=== PATIENT | female | born 1950 | race Caucasian/White ===

== ENCOUNTER 2024-06-15 08:34 | Inpatient (IN) ==
--- NOTE | 2024-05-13 12:57 | PAT Medication Instructions ---
Medication Instructions Date of Service May 13, 2024 Home Medications apixaban 5 mg tablet (Eliquis) 5 mg PO BID atenolol 50 mg tablet 50 mg PO QDL baclofen 10 mg tablet 10 mg PO DAILY PRN Pain levothyroxine 50 mcg tablet (Synthroid) 100 mcg PO QAM Continue as directed atenolol 50 mg tablet 50 mg PO QDL baclofen 10 mg tablet 10 mg PO DAILY PRN Pain (if needed) levothyroxine 50 mcg tablet (Synthroid) 100 mcg PO QAM ASK your prescriber and surgeon apixaban 5 mg tablet (Eliquis) 5 mg PO BID Other Notes If you have any questions please call us at [phone] or [phone] or [phone] or [phone]
--- NOTE | 2024-05-20 14:11 | Anesthesiology Consultation ---
Date of Service May 20, 2024 Assessment & Plan (1) Encounter for pre-operative examination: - patient reports upcoming PCP pre-operative evaluation 06/08/24, Dr. Audra Chavez. - will ask cardiology if patient can hold apixaban (Eliquis) 3 days before surgery in order to receive neuraxial anesthesia. - cardiology clearance 04/07/24: "...based on her most recent evaluation, she would be at low risk of 30 day postop OR or cardiac arrest...dependent on no new concerning symptoms since the time of her last assessment within the last year...may hold apixaban (Eliquis) 2 days prior to the procedure and resume when felt to be safe following the procedure..." - Outpatient joint assessment: Patient is currently scheduled for inpatient pathway. If re-evaluated and patient/surgeon requests outpatient pathway, patient is acceptable candidate for outpatient joint program from anesthesia standpoint pending surgeon's office assessment of pt motivation/support/completion of same day joint program preop requirements. - Per air duct mechanic on 05/12/24: No known infectious disease contacts, current infectious disease symptoms in past 10 days or COVID positive test result in the past 30 days. Chart Review Chart Review: Pending: Refer to Additional Notes / Consult section and Patient seen in Pre Admission Testing Teaching & Discussion Pre-Anesthesia Teaching/Discussion Notes: Instructed NPO after midnight before surgery, except medications with 15 cc of water. Medication instructions provided according to the PAT guidelines. History Surgery Operation Date: 06/15/24 11:10 Proposed Procedures p Right Total Hip Arthroplasty, Possible Dual Mobility - Néstor Morillo MD Height/Weight Height: 5 ft 3.5 in Weight: 61.1 kg Allergies Allergy/AdvReac Type Severity Reaction Status Date / Time tramadol Allergy Severe Rash Verified 05/20/24 14:19 acetaminophen [From Percocet] Allergy Unknown Rash Verified 05/12/24 08:57 latex Allergy Unknown Redness of Verified 05/12/24 09:05 Skin oxycodone [From Percocet] Allergy Unknown Rash Verified 05/12/24 08:57 Medications Home Medications Medication Instructions Recorded Confirmed Last Taken apixaban 5 mg tablet (Eliquis) 5 mg PO BID 05/12/24 05/12/24 Unknown atenolol 50 mg tablet 50 mg PO QDL 05/12/24 05/12/24 Unknown baclofen 10 mg tablet 10 mg PO DAILY PRN Pain 05/12/24 05/12/24 Unknown levothyroxine 50 mcg tablet 100 mcg PO QAM 05/12/24 05/12/24 Unknown (Synthroid) Additional Notes: Patient was instructed and it was written on provided medication instructions that we will request stopping apixaban (Eliquis) 3 days before surgery. She verbalized understanding and denied questions or concerns. Past Medical History Medical History History of blood transfusion with ectopic Hx of ectopic Occipital neuritis hx- no issues in years, no longer follows w/ neuro History of COVID-19 (2020) no hosp; resolved Hypothyroidism Atrial fibrillation (2018) hx of one episode- controlled w/ meds, reason for Eliquis - follows w/ [facility] cardio Dr Jarocho Lincoln Hx of ovarian cancer (2018) s/p hysterectomy - no chemo or radiation Patient denies h/o stroke, seizures, heart attack, heart failure, DM, HTN, or blood clots/DVTs. Exercise / Class Metabolic Activity II 4-5 Yardwork/Stairs/Walk up hill (denies chest discomfort or shortness of breath with one flight of stairs) Past Surgical History Surgical History Hx of bilateral cataract extraction History of bladder surgery bladder reconstruction Hx of hysterectomy Hx of abdominoplasty Hx of section Past Anesthesia History No Family Hx of Anesthesia Complications and Other (slow to wake with hysterectomy) History of PONV No Hx of PONV and No Hx of Motion Sickness Social History Smoking Status: Never smoker Do You Dip or Chew Tobacco: No Hx Alcohol Use: Yes alcohol intake frequency: holidays/special occasions only Hx Substance Use: No substance use type: does not use Review of Systems Snoring, denies witnessed apneas. Patient denies chest pain, shortness of breath, dyspnea on exertion, reflux, fever, chills, cough, wheezing, or palpitations. Physical Exam Vital Signs Vitals BP 169/83 (Pt notes often has elevated BP readings in clinic with white coat syndrome, notes she is anxious regarding surgery) P 57 TEMP 98.0 SP02 97% on RA RESP 18 Physical Patient resting comfortably in chair in no acute distress, alert and oriented, responding appropriately throughout visit Full cervical extension range of motion without pain TMD 3.5 finger breadths Mallampati Score 2 Dentition: one crown, denies chipped or loose teeth, caps, implants or bridges Lungs: normal respiratory effort. Good air movement, clear throughout to auscultation, no adventitious breath sounds Cardiac: regular rate and rhythm, no murmurs noted Carotid arteries: negative bruit bilat Lab Results Anesthesia Preop Results Results Anesthesia Widget: WBC 5.51 K/ul (4.8-10.8) 05/20/24 Hgb 12.9 g/dl (12.0-16.0) 05/20/24 Hct 38.9 % (37.0-47.0) 05/20/24 Plt 198 K/uL (130-400) 05/20/24 Na 139 mmol/L (136-145) 05/20/24 K 4.0 mmol/L (3.5-5.1) 05/20/24 Cl 108 mmol/L (98-107) H 05/20/24 CO2 26 mmol/L (21-32) 05/20/24 BUN 16 mg/dl (6-23) 05/20/24 Creat 0.49 mg/dl (0.6-1.2) L 05/20/24 Glucose Level 90 mg/dl (70-99(Fasting)) 05/20/24 PT 11.8 Seconds (9.0-12.0) 05/20/24 PTT 31 Seconds (21-31) 05/20/24 INR 1.1 (0.9-1.1) 05/20/24 Urine Color Yellow 05/20/24 Urine Appearance Clear (Clear) 05/20/24 Urine pH 5.5 (4.5-7.5) 05/20/24 Urine Specific [place] 1.016 (1.000-1.030) 05/20/24 Urine Protein Negative (Negative) 05/20/24 Urine Glucose (UA) Negative (Negative) 05/20/24 Urine Ketones Negative (Negative) 05/20/24 Urine Blood Negative (Negative) 05/20/24 Urine Nitrite Negative (Negative) 05/20/24 Urine Bilirubin Negative (Negative) 05/20/24 Urine Urobilinogen Negative (Negative) 05/20/24 Urine Leukocyte Esterase Negative (Negative) 05/20/24 Blood Type A Negative 05/20/24 Antibody Screen NEGATIVE 05/20/24 Testing Electrocardiogram Date: 05/20/24 Sinus bradycardia with 1st degree AV block, rate 53 bpm Nonspecific T wave abnormality anterior leads Chest X-Ray Date: 05/20/24 No acute process.
--- NOTE | 2024-05-20 16:41 | History & Physical Report ---
Date of Service May 20, 2024 Assessment & Plan (1) Osteoarthritis of right hip: Plan: PRE-OP Diagnosis: Right hip osteoarthritis Planned Procedure: Right total hip arthroplasty possible dual mobility cup Plan: Patient is scheduled to undergo this procedure at the [facility] with a 23-hour observation admission with Dr. Morillo on Thursday, August 15, 2024. Risks and complications of the procedure such as: Infection, bleeding, pain, scarring, nerve blood vessel damage, weakness, wound problems, stiffness, incomplete relief of symptoms, hardware failure, hardware loosening, wear, fracture, tendon or ligament injury, dislocation, leg length inequality, blood clots, Embolism, heart attack, stroke and were explained to the patient at her visit today. Informed consent to perform the procedure was obtained. Patient has an appointment to meet with anesthesia later today and while there will obtain CBC with differential, complete metabolic panel, PT/INR, PTT, blood type and screen, urinalysis, urine culture and sensitivity, EKG, and a chest x-ray. Patient will also need preoperative medical clearance from their primary care provider. We have obtained clearance from her infantry weapons officer who recommends that she stop her Eliquis 2 days prior to the surgery.. Patient states that she plans on doing in-home physical therapy for the first 1 to 2 weeks postoperatively that we will transition into outpatient physical therapy in our PT clinic. Patient will need a walker, raised toilet seat, shower chair and a hip kit. During today's visit we reviewed the total hip packet as well as precautions. We discussed discharge planning from the hospital. I provided paperwork to obtain a handicap placard for their vehicle. We discussed lectures offered by [facility] in regards to joint replacement surgery via Zoom. I advised the patient that upon discharge from hospital we will prescribe a narcotic pain medication and have her resume her Eliquis. Patient will be scheduled for 2-week postoperative follow-up visit with Giorgio on June 30, 2024. This chart was completed utilizing [employer] voice recognition software. Grammatical errors, random word insertions, pronoun errors, and in complete sentences are an occasional consequence of the system. Any questions or concerns about the content, text, or information contained within the body of this dictation should be addressed directly to the physician for clarification. History of Present Illness Chief Complaint: Chief Complaint: Right hip pain Primary Care Provider: NO PCP History of Present Illness (including history relevant to procedure): This 73-year-old female presents to the clinic today for preoperative history and physical. Patient complains of a 60-year history of right hip pain over the posterior lateral aspect of her hip and to her groin. She states that over the past several months her mobility has decreased significantly. Patient has had chiropractic manipulation which helps manage her pain. She regularly uses Advil which is only mildly effective. Patient states that she feels much better when she is active. She stiffens up when she is inactive. Recently she has found it difficult to tie her shoes, cut her toenails or shave her legs. Patient is ready to proceed with surgical intervention at this point. Review Of Systems: A 12 point review of systems is performed and is unremarkable except for those things stated in the HPI past medical history. Past Medical History: Problems: Osteoarthritis of right hip Hypertension Hypothyroidism History of ovarian cancer Procedure History Procedure Procedure Date Comments Tummy tuck Tubal ligation Hysterectomy Bladder repair Allergies and Sensitivities: traMADol(rash) Percocet(rash) Current Home Meds: (Last Updated 05/20 12:30) apixaban (Eliquis 5 mg oral tablet) 5 mg PO bid atenolol (atenolol 50 mg oral tablet) 50 mg PO Every other day cycloSPORINE ophthalmic (Restasis 0.05% ophthalmic emulsion) 1 drop both eyes q12h levothyroxine (levothyroxine 100 mcg (0.1 mg) oral tablet) 100 mcg PO Daily thyroid desiccated ([place] Thyroid 120 mg oral tablet) 120 mg PO Daily Initial Wt: 05/20 60.8 kg 134 lb Allergies Allergy/AdvReac Type Severity Reaction Status Date / Time tramadol Allergy Severe Rash Verified 05/20/24 14:19 acetaminophen [From Percocet] Allergy Unknown Rash Verified 05/12/24 08:57 latex Allergy Unknown Redness of Verified 05/12/24 09:05 Skin oxycodone [From Percocet] Allergy Unknown Rash Verified 05/12/24 08:57 Home Medications Medication Instructions Recorded Confirmed Type apixaban 5 mg tablet (Eliquis) 5 mg PO BID 05/12/24 05/12/24 History atenolol 50 mg tablet 50 mg PO QDL 05/12/24 05/12/24 History baclofen 10 mg tablet 10 mg PO DAILY PRN Pain 05/12/24 05/12/24 History levothyroxine 50 mcg tablet 100 mcg PO QAM 05/12/24 05/12/24 History (Synthroid) Past Med/Surg History Problem List Osteoarthritis of right hip Encounter for pre-operative examination Medical History History of blood transfusion with ectopic Hx of ectopic Occipital neuritis hx- no issues in years, no longer follows w/ neuro History of COVID-19 (2020) no hosp; resolved Hypothyroidism Atrial fibrillation (2018) hx of one episode- controlled w/ meds, reason for Eliquis - follows / [facility] cardio Dr Jarocho Lincoln Hx of ovarian cancer (2018) s/p hysterectomy - no chemo or radiation Surgical History Hx of bilateral cataract extraction History of bladder surgery bladder reconstruction Hx of hysterectomy Hx of abdominoplasty Hx of section Social History Smoking Status: Never smoker Second Hand Exposure: Yes (as a child); Do You Dip or Chew Tobacco: No; Hx Alcohol Use: Yes Hx Substance Use: No Preferred Language: Kiswahili Communication Ability: Effective [employer] Drm Consultant Required: No Beliefs That Will Affect Care: None Current Living Situation: Spouse Feels Safe at Home: Yes Assistive Devices: None Review of Systems All systems reviewed & are unremarkable except as noted in Subjective Physical Exam Physical Exam: Physical Exam: (relevant to the procedure, including heart and lung evaluation) General: Alert and oriented x 3 with proper grooming and hygiene Eyes: Pupils are equal reactive to light with accommodation. Extraocular movements are intact Throat: posterior oropharynx is clear with absence of edema, erythema or exudate. Dentition is appropriate Cardiac: Regular rate and rhythm with no murmurs or gallops appreciated Lungs: Clear to auscultation throughout with no wheezing, rales or rhonchi Abdomen: Nonobese, nondistended, nontender with NABS Extremities: Right hip; flexion is limited to 80 degrees, internal rotation to - 5 degrees and external rotation to 15 degrees. Logroll test is positive. Stinchfield test positive. Straight leg raise test positive. With referred pain to the groin. Scour and impingement tests are both positive. Patient was neurovascularly intact. Neuro: Cranial nerves II through XII are intact with no motor or sensory deficit Skin: Normal appearance with no open skin areas or dischargePhysical Exam: (relevant to the procedure, including heart and lung evaluation) Results & Data Diagnostic Findings Studies (relevant to the procedure): 3 views of both hips which showsadvanced osteoarthritis
[~2024-06-15 08:34] MED LIST: ROPIV 0.5% 246mg, Ketorolac 30mg, EPINEPHrine 0.5mg in NSS INFIL SCH; ROPIVACAINE 0.5% 5 MG/ML 30 ML VIAL ONE
--- NOTE | 2024-06-15 08:48 | History & Physical Bridge Note ---
Date of Service June 15, 2024 History & Physical Bridge Note I have examined the patient, reviewed the History & Physical and in the interval since the performance of the History & Physical I have noted the following changes of clinical significance:consent and site right hip verified. no changes noted
[2024-06-15] MEDS: LR 15ML/HR IV SCH (09:01)
[2024-06-15] MEDS: LR 60ML/HR IV SCH (09:02)
[2024-06-15] MEDS ORDERED: PROPOFOL IV EMULSION 10 MG/ML 20 ML VIAL IV ONE (10:10)
[2024-06-15] MEDS ORDERED: MIDAZOLAM HCL 1 MG/ML 2ML VIAL ONE (10:10)
[2024-06-15] MEDS ORDERED: LIDOCAINE 2% 2 ML VIAL/AMP(20MG/ML) INFIL ONE (10:10)
[2024-06-15] MEDS ORDERED: fentaNYL citrate PF 100 MCG/2 ML VIAL ONE ×2 (10:10→12:02)
[2024-06-15] MEDS ORDERED: ROCURONIUM BROMIDE 10 MG/ML 5 ML VIAL IV ONE (10:10)
[2024-06-15] MEDS ORDERED: DEXAMETHASONE SOD INJ 4 MG/ML VIAL ONE (10:10)
[2024-06-15] MEDS ORDERED: ONDANSETRON INJ 2 MG/ML 2 ML VIAL ONE (10:10)
[2024-06-15] MEDS: TRANEXAMIC ACID 1,000 MG **IV Pre-op IV SCH (11:06)
[2024-06-15] MEDS: ceFAZolin 2000MG 2,000 MG/15 ML SYR IV SCH ×2 (11:22→18:40)
[2024-06-15] MEDS ORDERED: HYDROmorphone INJ 2 MG/ML SYR/VIAL ONE (11:49)
[2024-06-15] MEDS: ORTHO JOINT ANESTHETIC ONE (12:18)
[2024-06-15] MEDS: ROPIVACAINE 0.5% HCL/PF 246 MG, Ketorolac (*for OR use only*) 30 MG, EPINEPHrine 30MG/3... INFIL SCH (12:36)
[2024-06-15] MEDS: TRANEXAMIC ACID 1,000 MG **IV Intra-op IV SCH (12:37)
[2024-06-15] MEDS ORDERED: SUGAMMADEX SODIUM 200 MG/2 ML VIAL IV ONE (12:50)
--- NOTE | 2024-06-15 13:00 | Post Operative Brief Note ---
Immediate Post Op Note Date of Surgery June 15, 2024 Pre & Post Diagnosis Operation Date: 06/15/24 10:40 Pre-Op Diagnosis: Osteoarthritis of right hip Post-Op Diagnosis: Osteoarthritis of right hip I identified the patient and participated in the time-out.: Yes Procedure Operation Date: 06/15/24 10:40 Actual Procedures p Right Total Hip Arthroplasty, Dual Mobility(Right) - Néstor Morillo MD Surgeon Néstor Morillo MD Environmental Services Tech Saba/Fabiano Estimated Blood Loss 100 Findings Consistent with Post-Op Diagnosis Severe osteoarthritis with marked acetabular retroversion right hip significant periacetabular osteophytes Fluids See anesthesia report Complications None
--- NOTE | 2024-06-15 13:05 | Operative Report ---
Post Operative Report Pre & Post Diagnosis Operation Date: 06/15/24 10:40 Pre-Op Diagnosis: Osteoarthritis of right hip Post-Op Diagnosis: Osteoarthritis of right hip I identified the patient and participated in the time-out.: Yes Procedure Operation Date: 06/15/24 10:40 Actual Procedures p Right Total Hip Arthroplasty, Dual Mobility(Right) - Néstor Morillo MD Surgeon Néstor Morillo MD Fresh Foods Technician Saba/Fabiano Estimated Blood Loss 100 Findings Consistent with Post-Op Diagnosis Advanced osteoarthritis with marked acetabular retroversion. Acetabular osteophytes femoral neck cam lesion right hip Fluids See anesthesia report Specimens Bone pathology Drains None Complications None Indications Severe pain marked x-ray change Description of Procedure After the patient was appropriate endophyte site verified consent verified antibiotics confirmed to be given the right lower extremity was prepped and draped in his routine fashion with the patient in the left lateral decubitus position. A posterior approach to the hip was then made sharp section carried through skin blunt dissection down to fascia this was incised under direct vision. Once the fascia was incised Charnley retractor carefully placed 1 can see the sciatic nerve it was not explored was just visualized. Short external rotators were released capsule was teed the hip dislocated there was marked cam lesion marked periacetabular osteophytes some is required resection immediately after the dislocation. The femoral neck was resected leaving about a centimeter above the lesser trochanter. Excellent acetabular exposure was obtained. Retroversion was identified and osteophytes resected serial reaming carried up to a 50 and a 50 cup impacted into appropriate anteversion inclination with excellent rim fit and then secured with an additional 6.5 x 25 screw with excellent purchase. Once all the osteophytes removed the whole limb later was seated and the 50/43 dual mobility liner was placed and impacted into excellent position. Should be next this was all irrigated prior to doing this with Betadine and Pulsavac. Femur was then flexed internally rotated and the proximal femur prepared with roncourtneyur canal finder lateralizing rasp and serial broaching up to a size 4 stem for fit very well. Trial reduction with a high offset and regular stem neck length was appropriate with a regular neck length. The leg lengths are equal with a +4 head. Trial reduction was stable in all planes. The hip was then dislocated all remaining trial implants were removed on the permanent stem and head neck, were then seated hip reduced it was stable all planes leg lengths were equal. The wound was then irrigated and then closed with 2-0 Vicryl for the short external rotator remnants there was no significant capsule based on the amount of osteophyte resection and then gluteus leah fascia was then closed as well as the IT band with #2 Vicryl the deep fat with #2 Vicryl superficial fat with 2-0 Vicryl and the wound with stainless steel clips appropriate dressing applied the patient transferred recovery in satisfactory descending tolerated the procedure well. Summary of implants acetabular shell sector cup 5025 x 6.5 screw dome cover whole rn intake 50/45 the mobility liner for standard stem with collar Actis dual Flex 43/22 bipolar head 22+4 head. Patient tolerated the procedure well. The femoral head was articular ease femoral head 22+4. EBL was 100 cc or less crystalloid per anesthesia bone pathology pending DVT prophylaxis to remove resume tomorrow for her chronic atrial fibrillation. I attest to the content of the Intraoperative Record and any orders documented therein. Any exceptions are noted below.
--- NOTE | 2024-06-15 13:08 | Discharge Summary ---
Date of Service June 16, 2024 if she passes PT/OT. Admission HPI Per Admitting Provider History of Present Illness (including history relevant to procedure): This 73-year-old female presents to the clinic today for preoperative history and physical. Patient complains of a 60-year history of right hip pain over the posterior lateral aspect of her hip and to her groin. She states that over the past several months her mobility has decreased significantly. Patient has had chiropractic manipulation which helps manage her pain. She regularly uses Advil which is only mildly effective. Patient states that she feels much better when she is active. She stiffens up when she is inactive. Recently she has found it difficult to tie her shoes, cut her toenails or shave her legs. Patient is ready to proceed with surgical intervention at this point. Review Of Systems: A 12 point review of systems is performed and is unremarkable except for those things stated in the HPI past medical history. Past Medical History: Problems: Osteoarthritis of right hip Hypertension Hypothyroidism History of ovarian cancer Procedure History Procedure Procedure Date Comments Tummy tuck Tubal ligation Hysterectomy Bladder repair Allergies and Sensitivities: traMADol(rash) Percocet(rash) Current Home Meds: (Last Updated 05/20 12:30) apixaban (Eliquis 5 mg oral tablet) 5 mg PO bid atenolol (atenolol 50 mg oral tablet) 50 mg PO Every other day cycloSPORINE ophthalmic (Restasis 0.05% ophthalmic emulsion) 1 drop both eyes q12h levothyroxine (levothyroxine 100 mcg (0.1 mg) oral tablet) 100 mcg PO Daily thyroid desiccated ([place] Thyroid 120 mg oral tablet) 120 mg PO Daily Initial Wt: 05/20 60.8 kg 134 lb Principal Diagnosis Severe osteoarthritis right hip Discharge Data Allergies Allergy/AdvReac Type Severity Reaction Status Date / Time oxycodone Allergy Severe Flushing Verified 06/15/24 09:06 tramadol Allergy Severe Rash Verified 06/15/24 09:06 latex Allergy Intermediate Rash Verified 06/15/24 09:07 Vaccinations None Consultations None Procedures Performed Operation Date: 06/15/24 10:40 Actual Procedures p Right Total Hip Arthroplasty, Dual Mobility(Right) - Néstor Morillo MD Ordered Studies X-rays Hospital Course (1) Status post right hip replacement: Care pathway for total hip replacement Total Time Total Time Spent Total Time Spent (In Minutes): 5 Discharge Plan Discharge Items Reason For Visit: Severe Right Hip Osteoarthritis Discharge Diagnosis: Same Condition on Discharge: Good Activity: Per Instructions section Lifting: No more than 5 pounds Bathing: Keep incision dry Sexual Activity: Wait until after follow-up appointment Exercise/Sports: Wait until after follow-up appointment Call non-emergency contact if: your temperature is above 101.5, your wound has increased redness, your wound has increased drainage and your wound pain has increased Follow-up/Referrals: PCP,NO [Physician] - Addtl Attending Provider Instructions: DIET: * Resume previous diet. MEDICATIONS: * Please take your prescriptions as instructed at your pre-op appointment and/or see medication discharge instructions listed above. * If concerns develop, call your physician's office at . SPECIAL CARE INSTRUCTIONS: * Ice/Elevate as instructed. * Keep dressing clean, dry, intact. * Your surgical extremity may be discolored due to prepping agents used on the skin. A bluish-green tint is a normal variant and should not cause alarm. Call your doctor at [phone] if: * Temperature above 101 degrees * Pain not relieved by pain medicine ordered * There is increased drainage or redness from any incision * You have any unanswered questions, problems or concerns. FOLLOW UP VISIT: * If not already scheduled, please call the office at to schedule a follow-up appointment. Stand-Alone Forms: My [facility] Medications and DC Order Prescriptions: No Action baclofen 10 mg Tablet 10 mg PO DAILY PRN (Reason: Pain) levothyroxine [Synthroid] 50 mcg Tablet 100 mcg PO QAM atenolol 50 mg Tablet 50 mg PO QDL Eliquis 5 mg Tablet 5 mg PO BID Admission Data Admit Date/Time: 06/15/24 13:33 Attending Provider: Néstor Morillo Admit Provider: Néstor Morillo Primary Care Provider: Audra James
--- NOTE | 2024-06-15 13:09 | Orthopedic Progress Note ---
Date of Service June 15, 2024 Orthopedic Progress Note Patient tolerated right total well. Denies chest pain shortness of breath fever chills nausea vomiting or headache. Family contacted. Wound dressing clean dry and intact neurovascular check waiting for patient to become fully cognizant. X-rays pending. Blood loss was 100 cc or less. Initiate anticoagulation tomorrow.
--- NOTE | 2024-06-15 13:13 | Operative Report ---
Post Operative Report Pre & Post Diagnosis Operation Date: 06/15/24 10:40 Pre-Op Diagnosis: Osteoarthritis of right hip Post-Op Diagnosis: Osteoarthritis of right hip I identified the patient and participated in the time-out.: Yes Procedure Operation Date: 06/15/24 10:40 Actual Procedures p Right Total Hip Arthroplasty, Dual Mobility(Right) - Néstor Morillo MD Surgeon Néstor Morillo MD [employer] Technical Lead Senior Developer Saba/Fabiano Estimated Blood Loss 100 Findings Consistent with Post-Op Diagnosis Specimens Bone pathology Description of Procedure The patient was brought to the operative suite underwent general anesthesia. She was placed in the left lateral decubitus position. Right lower extremity was prepped and draped in usual sterile fashion. A surgical timeout was performed. Patient underwent a right total hip arthroplasty, please see Dr. Morillo's operative report for full details. I was present and assisted with limb positioning, soft tissue retraction, hardware placement, wound closure, postoperative dressing placement. Patient was awakened and taken to the recovery room in stable condition. I attest to the content of the Intraoperative Record and any orders documented therein. Any exceptions are noted below.
[2024-06-15] MEDS ORDERED: ATROPINE SULFATE 0.1 MG/ML 10ML SYR IV PRN (13:20)
[2024-06-15] MEDS ORDERED: ONDANSETRON INJ 2 MG/ML 2 ML VIAL IV PRN ×2 (13:20→15:15)
[2024-06-15] MEDS: fentaNYL citrate PF 100 MCG/2 ML VIAL IV PRN (13:20)
[2024-06-15] MEDS ORDERED: ePHEDrine sulfate 50 MG/ML AMP IV PRN (13:20)
[2024-06-15] MEDS: HYDROmorphone INJ 1 MG/ML SYRINGE IV PRN (13:35)
[2024-06-15] MEDS: fentaNYL citrate PF 100 MCG/2 ML VIAL ONE (13:44)
--- NOTE | 2024-06-15 13:44 | Operative Report ---
Post Operative Report Pre & Post Diagnosis Operation Date: 06/15/24 10:40 Pre-Op Diagnosis: Osteoarthritis of right hip Post-Op Diagnosis: Osteoarthritis of right hip I identified the patient and participated in the time-out.: Yes Procedure Operation Date: 06/15/24 10:40 Actual Procedures p Right Total Hip Arthroplasty, Dual Mobility(Right) - Néstor Morillo MD Surgeon PAYTON Morillo MD Combo Welder Saba/Fabiano MCCARTY Estimated Blood Loss 100 Findings Consistent with Post-Op Diagnosis see operative report Specimens see operative report Drains none Complications none Disposition Accompanied Patient To Recovery: Yes Indications This 73 year old female presented to the office complaints of persisting right hip pain and loss of motion. She had tried conservative care measures without improvement. She elected to proceed with surgical intervention after being educated about potential risks and outcomes. Preoperative imaging was obtained. Description of Procedure The patient was taken to the operating room where she was given general anesthesia. She was prepped and draped in the usual sterile fashion. Please see Dr. Morillo's operative report for specifics of the procedure. I was present for the entire case from initial patient positioning through final wound closure. Assistance was provided in tissue retraction, hemostasis, trial implant placement, final implant placement, and final wound closure. The patient was taken to the recovery room in satisfactory condition. I attest to the content of the Intraoperative Record and any orders documented therein. Any exceptions are noted below.
--- NOTE | 2024-06-15 13:53 | Anesthesiology Progress Note ---
Date of Service June 15, 2024 Anesthesia Post Procedure Vital Signs Vital Signs: Temp Pulse Resp BP Pulse Ox O2 Del Method 06/15/24 09:05 36.7 C 59 L 18 169/77 H 98 Room Air Pain Intensity Right Hip: Pain Intensity: 6 Transfer of Care Handoff Completed per policy Notes Mental Status: alert / awake / arousable and participated in evaluation Patient Amnestic to Procedure: Yes Nausea / Vomiting: adequately controlled Pain: adequately controlled Airway Patency, RR, SpO2: stable & adequate BP & HR: stable & adequate Hydration State: stable & adequate Anesthetic Complications: no major complications apparent
[2024-06-15] MEDS ORDERED: fentaNYL citrate PF 100 MCG/2 ML VIAL IV PRN (14:11)
[2024-06-15] MEDS: HYDROmorphone INJ 1 MG/ML SYRINGE ONE (14:15)
[2024-06-15] MEDS: HYDROmorphone INJ 2 MG/ML SYR/VIAL IV PRN (14:15)
--- NOTE | 2024-06-15 14:22 | XRay Report ---
AP PELVIS History: Right total hip arthroplasty. Degenerative arthritis. Postop. FINDINGS: The patient is status post a right total hip arthroplasty. The hardware is intact. No fract ure or dislocation. Skin ariel are in place. IMPRESSION: Right total hip arthroplasty. No evidence for hardware complication ACT 112: Negative or not required by law. Electronically signed by: Stewart Fontenot M.D. 06/15/2024 2:20 PM
--- OUTSIDE RECORDS SUMMARY | 2024-06-15 14:36 | External Medical Summary ---
Author Name Unknown Address Unknown Organization K0N:[address], [place] [address] Laboratory Report Ordering Provider Test Date Status BALJIT HAWKINS 05/27/2024 07:33:24 Final Observation Date Value Abnormality Reference (Units ) Status [facility] CHOLESTEROL 05/27/2024 07:33:24 297 Above high normal <200 (mg/dL) Final Age <18 Years >=18 Years<br/ >Desirable <170 mgdL <200 mgdL
Borderline High 170-199 mgdL 200-239 mgdL
High >=200 mgdL >= 240 mgdL

Based on National Cholesterol Education program (NCEP) guidelines. [facility] TRIGLYCERIDES 05/27/2024 07:33:24 292 Above hi gh normal <150 (mg/dL) Final Normal <150 mgdL
Borderl ine High 150-199 mgdL
High 200-499 mgdL
Very High >499 mgdL

Based on National Cholesterol Education Program (NCEP) guidelines. [facility] HDL CHOLESTEROL 05/27/2024 07:33:24 37 Below low normal >=60 (mg/dL) Final Age <18 Years >=18 Years<br/ >Low (Undesirable) <35 mgdL <40 mgdL
High (Desirable) >45 mgdL >=60 mgdL

Based on National Cholesterol Education program (NCEP) guidelines. [facility] NON-HDL CHOLESTEROL 05/27/2024 07:33:24 260 Above high normal <130 (mg/dL) Fin al Age <18 Years
Acceptabl e <140 mgdL
Borderline High 140-159 mgdL
High >=160 mgdL

Age >=18 Years
Optimal <130 mgdL
Near or Above Optimal 130-159 mgdL
Borderline High 160-189 mgdL
High 190-219 mgdL
Very High >=220 mgdL [facility] LDL, CALCULATED 05/27/2024 07:33:24 202 Above high normal <100 (mg/dL) Final Age <18 Years
Acceptabl e <110 mgdL
Borderline High 110-129 mgdL
High >=130 mgdL

Age >=18 Years
Optimal <100 mgdL
Near or Above Optimal 100-129 mgdL
Borderline High 130-159 mgdL
High 160-189 mgdL
Very High >=190 mgdL

Based on National Cholesterol Education Program (NCEP) guidelines. [facility] VLDL, CALCULATED 05/27/2024 07:33:24 58 Above high normal 8-32 (mg/dL) Final Performing Location [facility] [place] [address]
--- OUTSIDE RECORDS SUMMARY | 2024-06-15 14:36 | External Medical Summary ---
Author Name Unknown Address Unknown Organization K0N:[place] [address] Laboratory Report Ordering Provider Test Date Status BALJIT HAWKINS 05/27/2024 07:33:24 Final Observation Date Value Abnormality Reference (Units ) Status [facility] TSH 05/27/2024 07:33:24 0.70 0.27-4.2 0 (mIU/mL) [place] [address]
--- OUTSIDE RECORDS SUMMARY | 2024-06-15 14:36 | External Medical Summary ---
Author Name Unknown Address Unknown Organization K0N:[facility], [place] [address] Laboratory Report Ordering Provider Test Date Status BALJIT HAWKINS 05/27/2024 07:33:24 Final Observation Date Value Abnormality Reference (Units ) Status [facility] SODIUM 05/27/2024 07:33:24 141 135-146 (mmol/L) Final [facility] POTASSIUM 05/27/2024 07:33:24 4.0 3.5-5.1 (mmol/L) Final [facility] CHLORIDE 05/27/2024 07:33:24 108 Above high normal 98-107 (mmol/L) Final [facility] CO2 05/27/2024 07:33:24 23 22-32 (mmol/L) Final [facility] ANION GAP 05/27/2024 07:33:24 14 10-20 (mmol/L) Final [facility] BUN 05/27/2024 07:33:24 16 6-20 (mg/dL) Final [facility] CREATININE 05/27/2024 07:33:24 0.6 0.5-0.9 (mg/dL) Final [facility] ESTIMATED GLOMERULAR FILTRATION RATE 05/27/2024 07:33:24 96 Final [facility] BUN/CREATININE RATIO 05/27/2024 07:33:24 26.7 Above high normal 12.0-20.0 Final [facility] GLUCOSE 05/27/2024 07:33:24 93 70-120 (mg/dL) Final [facility] CALCIUM 05/27/2024 07:33:24 9.5 8.4-10.2 (mg/dL) Final [facility] AST/SGOT 05/27/2024 07:33:24 21 10-35 (U/L) Final [facility] ALKALINE PHOSPHATASE 05/27/2024 07:33:24 79 48-153 (U/L) Final [facility] ALT/SGPT 05/27/2024 07:33:24 17 10-35 (U/L) Final [facility] BILIRUBIN, TOTAL 05/27/2024 07:33:24 0.30 0.00-1.20 (mg/dL) Final [facility] PROTEIN, TOTAL 05/27/2024 07:33:24 6.9 6.0-8.3 (g/dL) Final [facility] ALBUMIN 05/27/2024 07:33:24 4.3 3.8-5.0 (g/dL) Final [facility] GLOBULIN 05/27/2024 07:33:24 2.6 1.8-3.8 (g/dL) Final [facility] ALBUMIN/GLOBULIN RATIO 05/27/2024 07:33:24 1.7 1.0-2.4 Final Performing Location [facility], [place] [address]
--- OUTSIDE RECORDS SUMMARY | 2024-06-15 14:36 | External Medical Summary | Summary of Care ---
Author Name Unknown Organization [facility] Address [address] [facility] [place] [address] Care Team Providers Care Nitrator Operator Name Role Phone Audra James DO Primary Care Provider [phone]- [phone] Reason for Visit * Reason Onset Date Comments Order Request 06/06/2024 Encounter Details Date Type Department Care Team (Late st Contact Info) Description 06/06/2024 Telephone Family [facility] [address] [place] [phone] Audra James DO [address] [place] [address] Order Request Allergies Active Allergy Reactions Criticality Noted Date Comments Doxycycline Nausea/vomiting Low 02/07/2021 Oxycodone-Acetaminophen Rash Low 07/09/2022 Other reaction(s): rash Tramadol 11/10/2019 Rash, nausea, slight fever documented as of this encounter (statuses as of 06/06/2024) Medications Medication Sig Dispensed Refills Start Date End Date Status RESTASIS 0.05 % ophthalmic emulsion INSTILL ONE DROP IN EACH EYE BEFORE INSERTING AND AFTER REMOVING CONTACT LENSES EACH DAY 4 12/16/2018 Active ZyrTEC Allergy 10 MG Oral Tablet Disintegrating (Cetirizine HCl) Take by mouth. Acti ve Multivitamin Adult Oral Tablet Take by mouth . Active Tobramycin-Dexamethaso ne 0.3-0.1 % Ophthalmic Suspension (Tobradex) INSTILL 1 DROP(S) IN EACH EYE TWICE A DAY 04/07/2022 Active valACYclovir HCl 1 GM Oral Tablet (Valtrex)Indications:H erpes simplex TAKE 2 TABLETS BY MOUTH IN THE MORNING AND TAKE 2 TABLETS AT BEDTIME 30 Tablet 1 07/27/2023 Active Baclofen 10 MG Oral Tablet (Lioresal)Indications: Headache, unspecified Take 1 Tablet by mouth at bedtime as needed for Headache. 90 Tablet 3 11/11/2023 Active Apixaban 5 MG Oral Tablet (Eliquis) Take 1 Tablet by mouth in the morning and 1 Tablet before bedtime. 60 Tablet 11 11/18/2023 Active Atenolol 50 MG Oral Tablet (Tenormin)Indications: Paroxysmal atrial fibrillation (HCC) Take 1 Tablet by mouth in the morning. 90 Tablet 3 04/06/2024 Active Levothyroxine Sodium 100 MCG Oral Tablet (Levoxyl)Indications:H ypothyroidism, unspecified type Take 1 Tablet by mouth in the morning. (at least 30 min prior to breakfast or other meds). 30 Tablet 11 04/28/2024 Active documented as of this encounter (statuses as of 06/06/2024) Active Problems Problem Noted Date Diagnosed Date Cystocele 02/27/2023 Familial hypercholesterolemia 02/27/2023 Overview: Last Assessment & Plan: She understands her elevated risk of CAD and CV events with her history. She strongly does not wish to take statin therapy. Stress test performed in September 2019 showed probably normal left ventricular perfusion. She has no concerning symptoms of obstructive CAD. Herpes simplex 02/27/2023 Hyperlipidemia 02/27/2023 Hypothyroidism 02/27/2023 Lipoma 02/27/2023 Mass of soft tissue of thigh 02/27/2023 Paroxysmal atrial fibrillation 02/27/2023 Overview: Last Assessment & Plan: No symptoms suggestive of recurrent atrial fibrillation. She will continue atenolol without any significant change at this time. She will continue Eliquis for embolic prophylaxis which she is tolerating well. Please try to keep her TSH level within normal limits as this will help to prevent recurrent episodes of AFib. 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 Never true 03/11/20 Within the past 12 months, t he food you bought just didn't last and you didn't have money to get more. Never true 03/11/2024 Childcare Answer Date Recorded Do you feel overwhelmed with taking care of a child, family member or friend? No 03/11/2024 Does your family need help f inding childcare? (Household - for ages 0-17 years) Not on file 03/11/2024 Clothing Answer Date Recorded Have you been unable to get clothing when it was really needed? No 03/11/2024 Is your family able to get c lothes or diapers when needed? (Household - for ages 0-17 years) Not on file 03/11/2024 Personal Safety Answer Date Recorded Do you feel unsafe or have concerns for your saf ety? No 03/11/2024 Do you have concerns for you r family's safety? (Household - for ages 0-17 years) Not on file 03/11/2024 Utilities Answer Date Recorded Do you have trouble paying y our heating, water, or electric bill? No 03/11/2024 Is your family able to pay t he heat, water, or electric bill? (Household - for ages 0-17 years) Not on file 03/11/2024 Does your family have access to good internet? (Household - for ages 0-17 years) Not on file 03/11/2024 Employment Status Answer Date Recorded Are you unemployed or without regular income? No 03/11/2024 Does the household have a re gular source of income? (Household - for ages 0-17 years) Not on file 03/11/2024 Social Connections Answer Date Recorded How often do you feel lonely or isolated from th ose around you? Never 03/11/2024 Financial Resource Strain Answer Date R ecorded Do you have any trouble payi ng for your medications, or do you think you might in the future? No 03/11/2024 Does your family have troubl e paying for medicine? (Household - for ages 0-17 years) Not on file 03/11/2024 Transportation Needs Answer Date Record ed READ ONLY Do you have troubl e getting a ride to medical visits or work? Never True 03/11/2024 Does your family have a hard time getting a ride to doctors visits? (Household - for ages 0-17 years) Not on file 03/11/2024 Has lack of transportation k ept you from medical appointments, meetings, work, or from getting things needed for daily living? Check all that apply. (Adult - for ages 18 years and over) Not on file 03/11/2024 Do you (or your family) have trouble finding or paying for a ride (transportation)? (Household - for ages 0-17 years) Not on file 03/11/2024 Housing Stability Answer Date Recorded Do you currently live in a s helter or have no steady place to sleep at night? No 03/11/2024 READ ONLY Do you think you a re at risk of becoming homeless? No 03/11/2024 Does your family worry about paying for your home or becoming homeless? (Household - for ages 0-17 years) Not on file 0 03/11/2024 Are you homeless or worried that you might be in the future? (Adult - for ages 18 years and over) Not on file Are you (or your family) rip eless or worried that you might be in the future? (Household - for ages 0-17 years) Not on file Food Insecurity Answer Date Recorded Do you need food for this week? No 03/11/2024 Are you able to get enough f ood for your family? (Household - for ages 0-17 years) Not on file 03/11/2024 Does your family need food t his week? (Household - for ages 0-17 years) Not on file 03/11/2024 Do you always have enough fo od for your family? (Household - for ages 0-17 years) Not on file 03/11/2024 Sex and Gender Information Value Date Recorded Sex Assigned at Female 02/20/2022 9:13 AM EDT Gender Identity Female 02/20/2022 9:13 AM EDT Sexual Orientation Straight 02/20/2022 9: 13 AM EDT Job Start Date Occupation Industry Not on file Not on file Not on file documented as of this encounter Functional Status Functional Status Response Date of Assess ment Are you deaf or do you have serious difficulty h earing? No 12/10/2020 Are you blind or do you have serious difficulty seeing, even when wearing glasses? No 12/10/2020 Do you have serious difficul ty walking or climbing stairs? (5 years old or older) No 12/10/2020 Do you have difficulty dress ing or bathing? (5 years old or older) No 12/10/2020 Because of a physical, menta l, or emotional condition, do you have difficulty doing errands alone such as visiting a doctor s office or shopping? (15 years old or older) No 12/11/19 Cognitive Status Response Date of Assessm ent Because of a physical, menta l, or emotional condition, do you have serious difficulty concentrating, remembering, or making decisions? (5 years old or older) No 12/10/2020 documented as of this encounter Miscellaneous Notes * Telephone Encounter - Khushi Thomas, RASHAD - 06/06/2024 10:21 AM EDT [facility] calling they need orders for mammogram Pt is scheduled 06/08 documented in this encounter Plan of Treatment Upcoming Encounters Date Type Department Care Team (Late st Contact Info) Description 06/08/2024 1:30 PM EDT [facility] a [facility] of [facility] [address] [facility] [place] [address] 06/08/2024 5:30 PM EDT Office Visit Family [facility] [address] [place] [phone] Audra Jamse, DO [address] [place] [address] 07/08/2024 11:30 AM EDT Office Visit Dermatology [facility] [address] [place] [address] Jad Alamo MD [address] [place] [address] 09/07/2024 8:30 AM EST Office Visit [facility] [address] [place] [phone] Audra James, DO [address] [place] [address] 10/19/2024 9:30 AM EST [facility] [address] [place] [address] Peg Pruitt PA-C [address] [place] [address] Scheduled Orders Name Type Priority Associated Diagnoses Orde r Schedule MAMMOGRAM SCREENING DAPHNEY BILATERAL Medical Imaging Routine Encounter for screening mammogram for breast cancer Expected: 07/06/2024, Expires: 07/06/2025 Health Maintenance Due Date Last Done Comments DXA Scan 1952 DTap/Tdap Vaccines (1 - Tdap) 12/30/1971 Colonoscopy 1997 Fecal Occult Blood Test 1997 Sigmoidoscopy 1997 Zoster Vaccines (1 of 2) 2002 Pneumococcal Vaccine: 65+ Years (1 of 1 - PCV) 2017 COVID-19 Vaccine (1 - 2022-24 season) 2024 Influenza Vaccine (FLU shot) (#1) 2024 Mammogram 07/09/2024 07/09/2023, 06/28, 06/03/2023, Additional history exists Depression Screening 03/11/2025 03/11/2024 TSH 05/27/2025 05/27/2024, 03/29, 02/06/2023, Additional history exists Cologuard 12/10/2025 12/10/2022, 04/2023, 12/03/2022 Colorectal Cancer Screening 12/10/2025 Lipid Panel 05/27/2029 05/27/2024, 09/28, 10/10/2022, Additional history exists HPV (Gardasil) Vaccine Aged Out No lo nger eligible based on patient's age to complete this topic Hepatitis B Vaccine Aged Out No longe r eligible based on patient's age to complete this topic MENINGOCOCCAL (MENACTRA/MENVEO) Aged Out No longer eligible based on patient's age to complete this topic documented as of this encounter Medical Devices Implanted Type Area Accreditation Manager Device Identifier Shelf Expiration Date Model / Serial / Lot Mesh Restorelle Y - [id number] Implanted:Qty: 1 on 12/10/2020 by Audra Merritt MD at [place] [facility] COLOPLAST SWEEN KARLENE 2022 [id number] / / [id number] documented as of this encounter Visit Diagnoses Diagnosis Encounter for screening mammogram for breast cancer- Primary documented in this encounter Advance Directives * Full Code (Latest Code Status on File) Date Activated Date Inactivated Comments 12/10/2020 10:27 AM 12/11/2020 2:58 PM This order reflects the patients wishes and were consensually agreed upon. * Full Code Date Activated Date Inactivated Comments 11/02/2019 3:16 PM 11/04/2019 3:58 PM This order ref lects the patients wishes and were consensually agreed upon. Question Answer Comments Discussion of Advance Directives occurred with: Patient Care Teams Nitrator Operator Relationship Specialty Start Date End Date Audra James DO [address] [place] [address] PCP - General Family Medicine 04/03/23 documented as of this encounter
--- OUTSIDE RECORDS SUMMARY | 2024-06-15 14:36 | External Medical Summary | Summary of Care ---
Author Name Unknown Organization [facility] Address [address] [facility] [place] [address] Care Team Providers Care Oil Deliverer Name Role Phone Audra James DO Primary Care Provider [phone] Reason for Visit * Reason Onset Date Comments Documentation Distribution 06/13/2024 Encounter Details Date Type Department Care Team (Late st Contact Info) Description 06/13/2024 Telephone Family Vee [facility] [address] [place] [phone] Audra James DO [address] [place] [address] Documentation Distribution Allergies Active Allergy Reactions Criticality Noted Date Comments Doxycycline Nausea/vomiting Low 02/07/2021 Oxycodone-Acetaminophen Rash Low 07/09/2022 Other reaction(s): rash Tramadol 11/10/2019 Rash, nausea, slight fever documented as of this encounter (statuses as of 06/14/2024) Medications Medication Sig Dispensed Refills Start Date [...] as of this encounter (statuses as of 06/14/2024) Active Problems Problem Noted Date Diagnosed Date Osteoarthritis of right hip 04/04/2024 Cystocele 02/27/2023 Familial hypercholesterolemia 02/27/2023 Overview: Last [...] as of this encounter (statuses as of 06/14/2024) Resolved Problems Problem Noted Date Diagnosed Date Resolved Date 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 Never true 03/11/20 24 Within the past 12 months, t he [...] (15 years old or older) No 12/11/19 21 Cognitive Status Response Date of Assessm ent Because of a physical, menta l, or emotional condition, do you have serious difficulty concentrating, remembering, or making decisions? (5 years old or older) No 12/10/2020 documented as of this encounter Miscellaneous Notes * Telephone Encounter - Mitzi Cabezas, RASHAD - 06/14/2024 11:04 AM EDT LM for Luli telling her the Pre-op was faxed at 11:01 AM this morning. Advised a call back if not received. CB# [phone] * Telephone Encounter - Linda Horner MED ASSIST - 06/14/2024 8:08 AM EDT Marta calling again for note, surgery is scheduled for tomorrow. * Telephone Encounter - Linda Horner MED ASSIST - 06/13/2024 9:48 AM EDT Call cristy Lozano at [facility] to request pre-op clearance be faxed once its signed to [phone]. Surgery is scheduled for 06/15 documented in this encounter Plan of Treatment Upcoming Encounters Date Type Department Care Team (Late st Contact Info) Description 07/08/2024 11:30 AM EDT Office Visit Dermatology [facility] [address] [place] [address] Jad Alamo MD [address] [place] [address] 09/07/2024 8:30 AM EST Office Visit Family MedicineVee [facility] [address] [place] [phone] Audra James, [address] [place] [id number] 10/19/2024 9:30 AM EST [facility] [address] [place] [address] Peg Pruitt PA-C [address] [place] [address] Health Maintenance Due Date Last Done Comments DXA Scan 1950 DTap/Tdap Vaccines (1 - Tdap) 12/30/1971 Colonoscopy 1997 Fecal Occult Blood Test 1997 Sigmoidoscopy 1997 Zoster Vaccines (1 of 2) 2002 Pneumococcal Vaccine: 65+ Years (1 of 1 - PCV) 2017 COVID-19 Vaccine (1 - season) 2024 Influenza Vaccine (FLU shot) (#1) 2024 Depression Screening 03/11/2025 03/11/2024 TSH 05/27/2025 05/27/2024, 03/29, 02/06/2023, Additional history exists Mammogram 06/08/2025 06/08/2024, 06/28, 07/09/2023, Additional history exists Cologuard 12/10/2025 12/10/2022, 04/2023, [...] this encounter Medical Devices Implanted Type Area Converting Technician Device Identifier Shelf Expiration Date Model / Serial / Lot Mesh Restorelle Y - [id number] Implanted:Qty: 1 on 12/10/2020 by Audra Merritt MD at [place] [facility] [employer] 2022 [id number] / / [id number] documented as of this encounter Advance Directives * Full Code [...] Advance Directives occurred with: Patient Care Teams Oil Deliverer Relationship Specialty Start Date End Date Audra James DO [address] [place] [address] PCP - General Family Medicine 04/03/23 documented as of this encounter
--- OUTSIDE RECORDS SUMMARY | 2024-06-15 14:36 | External Medical Summary | Continuity of Care Document ---
Author Name Unknown Organization [facility] [address] [facility] [address] Address [address] [place] [phone] Encounter [facility] [id number] Date(s): 05/20/24 - 05/20/24 [facility] [address] [facility] [address] [facility] Medicine [address] [place] [address], [address] [address] Encounter Diagnosis Preop examination(Discharge Diagnosis) - 05/20/24 Osteoarthritis of right hip(Discharge Diagnosis) - 05/20/24 Discharge Disposition: Home or Self Care Attending Physician: LUL Bailey Dennis Referring Physician: MD Ilia, Néstor Alvarez Allergies, Adverse Reactions, Alerts Substance Criticality Severity Reaction Reaction Severity Status Percocet rash Active traMADol rash Active Medications [place] Thyroid 120 mg oral tablet Start: 10/07/21 8:18:00 AM EST, 1 tab, PO, Daily Start Date: 10/07/21 Status: Ordered atenolol 50 mg oral tablet Start: 10/07/21 8:17:00 AM EST, 1 tab, PO, Every other day Start Date: 10/07/21 Status: Ordered Eliquis 5 mg oral tablet Start: 10/07/21 8:18:00 AM EST, 1 tab, PO, bid Start Date: 10/07/21 Status: Ordered levothyroxine 100 mcg (0.1 mg) oral tablet Start: 04/04/24 8:33:00 AM EDT, 1 tab, PO, Daily Start Date: 04/04/24 Status: Ordered Restasis 0.05% ophthalmic emulsion Start: 10/07/21 8:17:00 AM EST, 1 drop, both eyes, q12h Start Date: 10/07/21 Status: Ordered Mental Status 05/20/24 Barriers to Learning one year None evide nt Mandatory Health Literacy Documentation Yes Health Literacy Communication Barriers N ever Primary Language [place] Problem List Condition Confirmation Course Effective Dates Status H ealth Status Informant Osteoarthritis of right hip Confirmed Active Diagnosis Diagnosis Type Effective Dates Health Status Clinical Service Informant Osteoarthritis of right hip Discharge Diagnosis 05/20/24 Preop examination Discharge Diagnosis 05/20/24 Vital Signs Most recent to oldest [Reference Range]: 1 Height 159.0 cm (05/20/24 12:31 PM) Patient Weight 60.8 kg (05/20/24 12:31 PM) Body Mass Index 24.05 kg/m2 (05/20/24 12:31 PM) Temperature [36.5-37.9 DegC] 36.3 DegC *LOW* (05/20/24 12:31 PM) Respiratory Rate 20 br/min (05/20/24 12:31 PM) Blood Pressure 160/82mmHg (05/20/24 12:31 PM) Cuff Pulse Pressure 78 mmHg (05/20/24 12:31 PM) Social History Social History Type Response Smoking Status Never smoked cigaret raisa Sex Female Sex Representation Female (finding) Pre-OP H & P * LUL Bailey, Alexander: PERFORM Event Display: Pre-OP H & P Authored Date: [id number] PRE-OPERATIVE HISTORY AND PHYSICAL Name: PAULINO STEPHEN Patient Number: [id number] : 1950 Date of Service: 05/20/2024 PRE-OP Diagnosis: Right hip osteoarthritis Planned Procedure: Right total hip arthroplasty possible dual mobility cup Chief Complaint: Right hip pain History of Present Illness (including history relevant to procedure): This 73-year-old female presents to the clinic today for preoperative history and physical. Patient complains of a 60-year history of right hip pain over the posterior lateral aspect of her hip and to her groin. She states that over the past several months her mobility has decreased significantly. Patient has had chiropractic manipulation which helps manage her pain. She regularly uses Advil which is only mildly effective. Patient states that she feels much better when she is active. She stiffens up when she is inactive. Recently she has found it difficult to tie her shoes, cut her toenails or shave her legs. Patient is ready to proceed with surgical intervention at this point. Review Of Systems: A 12 point review of systems is performed and is unremarkable except for those things stated in the HPI past medical history. Past Medical History: Problems: Osteoarthritis of right hip Hypertension Hypothyroidism History of ovarian cancer Procedure History Procedure Procedure Date Comments Tummy tuck Tubal ligation Hysterectomy Bladder repair Allergies and Sensitivities: traMADol(rash) Percocet(rash) Current Home Meds: (Last Updated 05/20 12:30) apixaban (Eliquis 5 mg oral tablet) 5 mg PO bid atenolol (atenolol 50 mg oral tablet) 50 mg PO Every other day cycloSPORINE ophthalmic (Restasis 0.05% ophthalmic emulsion) 1 drop both eyes q12h levothyroxine (levothyroxine 100 mcg (0.1 mg) oral tablet) 100 mcg PO Daily thyroid desiccated ([place] Thyroid 120 mg oral tablet) 120 mg PO Daily Vitals: Last Updated 05/20/24 12:31 Weights: Last Updated 05/20/24 12:31 Date Temp Pulse BP RR SpO2 FIO2 Date Wt(kg) Wt(lb) 05/20 12:31 36.3 160/82 20 98 05/20 12:31 60.8 134 05/20 12: 60.8 134 24 Hr Tmax: 36.3 at 05/20 12:31 Initial Wt: 05/20 60.8 kg 134 lb Physical Exam: (relevant to the procedure, including heart and lung evaluation) General: Alert and oriented x 3 with proper grooming and hygiene Eyes: Pupils are equal reactive to light with accommodation. Extraocular movements are intact Throat: posterior oropharynx is clear with absence of edema, erythema or exudate. Dentition is appropriate Cardiac: Regular rate and rhythm with no murmurs or gallops appreciated Lungs: Clear to auscultation throughout with no wheezing, rales or rhonchi Abdomen: Nonobese, nondistended, nontender with NABS Extremities: Right hip; flexion is limited to 80 degrees, internal rotation to - 5 degrees and external rotation to 15 degrees. Logroll test is positive. Stinchfield test positive. Straight leg raise test positive. With referred pain to the groin. Scour and impingement tests are both positive. Patient was neurovascularly intact. Neuro: Cranial nerves II through XII are intact with no motor or sensory deficit Skin: Normal appearance with no open skin areas or discharge Studies (relevant to the procedure): 3 views of both hips which showsadvanced osteoarthritis Plan: Patient is scheduled to undergo this procedure at the [facility] with a 23-hour observation admission with Dr. Morillo on Thursday, August 15, 2024. Risks and complications of the procedure such as: Infection, bleeding, pain, scarring, nerve blood vessel damage, weakness, wound problems, stiffness, incomplete relief of symptoms, hardware failure, hardware loosening, wear, fracture, tendon or ligament injury, dislocation, leg length inequality, blood clots, Embolism, heart attack, stroke and were explained to the patient at her visit today. Informed consent to perform the procedure was obtained. Patient has an appointment to meet with anesthesia later today and while there will obtain CBC with differential, complete metabolic panel, PT/INR, PTT, bloodtype and screen, urinalysis, urine culture and sensitivity, EKG, and a chest x-ray. Patient will also need preoperative medical clearance from their primary care provider. We have obtained clearance from her head custodian who recommends that she stop her Eliquis 2 days prior to the surgery.. Patientstates that she plans on doing in-home physical therapy for the first 1 to 2 weeks postoperatively that we will transition into outpatient physical therapy in our PT clinic. Patient will need a walker, raised toilet seat, shower chair and a hip kit. During today's visit we reviewed the total hip packet as well as precautions. We discussed discharge planning from the hospital. I provided paperworkto obtain a handicap placard for their vehicle. We discussed lectures offered by [facility] in regards to joint replacement surgery via Zoom. I advised the patient that upon discharge from hospital we will prescribe a narcotic pain medication and have her resume her Eliquis. Patient will be scheduled for 2-week postoperative follow-up visit with Giorgio on June 30, 2024. This chart was completed utilizing [employer] voice recognition software. Grammatical errors,random word insertions, pronoun errors, and in complete sentences are an occasional consequence of the system. Any questions or concerns about the content, text, or information contained within the body of this dictation should be addressed directly to the physician for clarification. Electronic Signature on File Electronically Reviewed/Signed by: lAexander Bailey PA-C Author Signature Dt/Tm:05/20/2024 04:36 PM Division of Sports Medicine Electronically Reviewed/Signed by: MD Jayna Pateligner Signature Dt/Tm: 05/20/2024 04:40 PM Cyber Transport Systems Specialist for Clinical Affairs, [facility] [place] Professor in Orthopaedics Extraction Machine Operator, [facility]
--- OUTSIDE RECORDS SUMMARY | 2024-06-15 14:36 | External Medical Summary | Summary of Care ---
Author Name Unknown Organization [facility] Address 1 [facility] [place] [address] Care Team Providers Care Slate Mixer Name Role Phone Audra James DO Primary Care Provider +1- [phone] Reason for Visit * Reason Comments pre-op exam Patient presents tod ay for pre-op exam. Encounter Details Date Type Department Care Team (Latest Contact Info) Description 06/08/2024 5:30 PM EDT Office Visit [facility] [address] [place] [phone] Audra James DO [address] [place] [phone] Preop examination*; Primary osteoarthritis of right hip; Hypothyroidism, unspecified type; Paroxysmal atrial fibrillation (HCC); Familial hypercholesterolemia Allergies Active Allergy Reactions Criticality Noted Date [...] on file documented as of this encounter Last Filed Vital Signs Vital Sign Reading Time Taken Comments Blood Pressure 148/80 06/08/2024 5:24 PM EDT Pulse 66 06/08/2024 5:24 PM EDT Temperature - - Respiratory Rate 16 06/08/2024 5:24 PM EDT Oxygen Saturation 98% 06/08/2024 5:24 PM EDT Inhaled Oxygen Concentration - - Weight 63.2 kg (139 lb 6 oz) 06/08/2024 5:24 PM EDT Height 160 cm (5' 3") 06/08/2024 5:24 PM EDT Body Mass Index 24.69 06/08/2024 5:24 PM EDT documented in this encounter Functional Status Functional Status Response [...] No 12/10/2020 documented as of this encounter Progress Notes * Audra James, - 06/08/2024 5:33 PM EDT Images from the original note were not included. Pre-Operative Medical Evaluation Procedure Information Type of Surgery: right total hip arthroplasty, possible dual mobility Referring Physician / Surgeon: Dr Néstor Morillo Date of procedure: 06/15/24 Brief History of Present Illness: Ongoing and progressively worsening right hip pain Medical History Problem List: Osteoarthritis of right hip (04/04/2024) Cystocele (02/27/2023) Familial hypercholesterolemia (02/27/2023) Herpes simplex (02/27/2023) Hyperlipidemia (02/27/2023) Hypothyroidism (02/27/2023) Lipoma (02/27/2023) Mass of soft tissue of thigh (02/27/2023) Paroxysmal atrial fibrillation (HCC) (02/27/2023) Tear of gluteus minimus tendon, initial encounter (02/27/2023) Ventral hernia (02/27/2023) Asymptomatic varicose veins of both lower extremities (01/14/2023) Vaginal vault prolapse, posthysterectomy (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 ZyrTEC Allergy 10 MG Oral Tablet Disintegrating (Cetirizine HCl), Take by mouth. RESTASIS 0.05 % ophthalmic emulsion, INSTILL ONE DROP IN EACH EYE BEFORE INSERTING AND AFTER REMOVING CONTACT LENSES EACH DAY valACYclovir HCl 1 GM Oral Tablet (Valtrex), TAKE 2 TABLETS BY MOUTH IN THE MORNING AND TAKE 2 TABLETS AT BEDTIME Tobramycin-Dexamethasone 0.3-0.1 % Ophthalmic Suspension (Tobradex), INSTILL 1 DROP(S) IN EACH EYE TWICE A DAY Allergies: Tramadol, Doxycycline, and Oxycodone-acetaminophen Past Medical History: has a past medical history of Atrial fibrillation (HCC), Herpes simplex disease, Hypercholesteremia, Hyperlipidemia, Hypothyroidism, Melanoma (HCC), and Ovarian cancer (HCC) (10/2019). Past Surgical History: has a past surgical history that includes delivery; exploration of abdomen; Miscellaneous Order ([facility] Only); Miscellaneous Order ([facility] Only); Miscellaneous Order ([facility] Only); breast biopsy (Right); Total Abd Hysterectomy w/wo Removal of Tube(s) (N/A, 11/02/2019); laparoscopy,surg,colpopexy (N/A, 12/10/2020); repair bladder & vagina, cystocele (N/A, 12/10/2020); and repair bladder defect (N/A, 12/10/2020). Social History: reports that she has never smoked. She has never used smokeless tobacco. She reports current alcohol use. She reports that she does not use drugs. Family History: family history includes Cancer in her mother; Diabetes in her grandmother (maternal); Heart diseasein her father and grandfather (paternal); Hypertension in her father and grandfather (paternal); Other cancer in her mother. Anesthesia History Type of Anesthesia: spinal Anesthesia reaction: No History of surgical complications: denies Personal history of venous thromboembolic disease: denies Physical Exam Vitals: 06/08/24 1724 Pulse: 66 Resp: 16 SpO2: 98% BP: 148/80 BMI: 24.7 Physical Exam Vitals and nursing note reviewed. Constitutional: General: She is not in acute distress. Appearance: Normal appearance. She is normal weight. HENT: Head: Normocephalic. Right Ear: Tympanic membrane normal. Left Ear: Tympanic membrane normal. Mouth/Throat: Mouth: Mucous membranes are moist. Pharynx: No posterior oropharyngeal erythema. Neck: Vascular: No carotid bruit. Cardiovascular: Rate and Rhythm: Normal rate and regular rhythm. Heart sounds: Normal heart sounds. Pulmonary: Breath sounds: Normal breath sounds. Musculoskeletal: Right lower leg: No edema. Left lower leg: No edema. Lymphadenopathy: Cervical: No cervical adenopathy. Neurological: Mental Status: She is alert. Psychiatric: Mood and Affect: Mood normal. Behavior: Behavior normal. Labs reviewed and are significant for: cmp - nl lytes, renal function, glucose Neg urine ua and cx Pt/ptt nl Cbc - no anemia; nl plt Cxr - no acute process EKG by my review is significant for: NSR with first degree AV block No acute changes Surgical Risk Scoring Revised Cardiac Risk Index (RCRI) High-risk type of surgery (examples include vascular and any open intraperitoneal or intrathoracic procedures): 0=No History of ischemic heart disease (history of myocardial infarction or positive exercise test, current compliant of chest pain considered to be secondary to myocardia ischemia, use of nitrate therapy, or ECG with pathological Q waves; do not count prior coronary revascularization procedure unless one of the other criteria for ischemic heart disease is present): 0=No History of heart failure: 0=No History of cerebrovascular disease: 0=No Diabetes mellitus requiring treatment with insulin: 0=No Preoperative serum creatinine >2.0 mg/dL (177 micromol/L): 0=No Pt has revised cardiac index score of: No Risk Factors- 0.4% (95% CI: 0.1-0.8) Screening for Obstructive Sleep Apnea (STOP-BANG) Do you Snore loudly? 0=No Do you often feel Tired, Fatigued, or Sleep? 0=No Has anyone Observed you Stop Breathing or Choking/Gasping during sleep? 0=No Do you have or are you being treated for High Blood Pressure? 1=Yes BMI over 35? 0=No Age older than 50? 1=Yes Neck size large? (For males - 17 inches or larger, For females - 16 inches or larger) 0=No Male? 0=No Score 0-2:low risk RASHAD, 3-4: intermediate risk of RASHAD, 5-8: high risk RASHAD 2 Assessment and Plan (Z01.818) Preop examination (primary encounter diagnosis) Comment: pt cardiovascularly stable to undergo procedure Plan: (M16.11) Primary osteoarthritis of right hip Comment: ok to proceed with right total hip arthroplasty Plan: (E03.9) Hypothyroidism, unspecified type Comment: TSH nl range 04/2024 Plan: (I48.0) Paroxysmal atrial fibrillation (HCC) Comment: rate controlled on atenolol; on apixaban; pt will stop 2 days prior to surgery Plan: (E78.01) Familial hypercholesterolemia Comment: #'s are high; pt refuses medications Plan: There are no diagnoses linked to this encounter. Functional Assessment They are able to walk up a flight of stairs, walk two blocks at a moderate pace, do heavy house work like vacuuming, grocery shop, and rides peloton bike regularly without cardiac sx . The patient's functional status is good (greater than 4 METS). 1 MET: 4 METs: 4-10 METs: Can take care of self, such as eat, dress or use the toilet. Can walk to block or go up a flight of steps. Can do heavy house work. Surgical Risk Assessment Patient is low medical risk for the listed procedure. Medication adjustments: Hold apixaban 2 days prior to surgery and resume once felt to be safe following the surgery. Additional consults or testing: none documented in this encounter Nursing Notes * Cielo Salinas LPN - 06/08/2024 5:11 PM EDT Images from the original note were not included. Pre-Operative Medical Evaluation Procedure Information Type of Surgery: Right total hip arthroplasty Referring Physician / Surgeon: Dr. Néstor Morillo Date of procedure: 06/15/24 Brief History of Present Illness: Right hip severe osteoarthritis Review of Systems: Medical History Problem List: Osteoarthritis of right hip (04/04/2024) Cystocele (02/27/2023) Familial hypercholesterolemia (02/27/2023) Herpes simplex (02/27/2023) Hyperlipidemia (02/27/2023) Hypothyroidism (02/27/2023) Lipoma (02/27/2023) Mass of soft tissue of thigh (02/27/2023) Paroxysmal atrial fibrillation (HCC) (02/27/2023) Tear of gluteus minimus tendon, initial encounter (02/27/2023) Ventral hernia (02/27/2023) Asymptomatic varicose veins of both lower extremities (01/14/2023) Vaginal vault prolapse, posthysterectomy (12/10/2020) Malignant neoplasm of right ovary (HCC) (11/25/2019) Pelvic mass (11/04/2019) 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 ZyrTEC Allergy 10 MG Oral Tablet Disintegrating (Cetirizine HCl), Take by mouth. RESTASIS 0.05 % ophthalmic emulsion, INSTILL ONE DROP IN EACH EYE BEFORE INSERTING AND AFTER REMOVING CONTACT LENSES EACH DAY Allergies: Tramadol, Doxycycline, and Oxycodone-acetaminophen Past Medical History: has a past medical history of Atrial fibrillation (HCC), Herpes simplex disease, Hypercholesteremia, Hyperlipidemia, Hypothyroidism, Melanoma (HCC), and Ovarian cancer (HCC) (10/2019). Past Surgical History: has a past surgical history that includes delivery; exploration of abdomen; Miscellaneous Order ([facility] Only); Miscellaneous Order ([facility] Only); Miscellaneous Order ([facility] Only); breast biopsy (Right); Total Abd Hysterectomy w/wo Removal of Tube(s) (N/A, 11/02/2019); laparoscopy,surg,colpopexy (N/A, 12/10/2020); repair bladder & vagina, cystocele (N/A, 12/10/2020); and repair bladder defect (N/A, 12/10/2020). Social History: reports that she has never smoked. She has never used smokeless tobacco. She reports current alcohol use. She reports that she does not use drugs. Family History: family history includes Cancer in her mother; Diabetes in her grandmother (maternal); Heart diseasein her father and grandfather (paternal); Hypertension in her father and grandfather (paternal); Other cancer in her mother. Anesthesia History Type of Anesthesia: MAC-Monitored Anesthesia Care and Caudal block Anesthesia reaction: No History of surgical complications: none Personal history of venous thromboembolic disease: none Physical Exam There were no vitals filed for this visit. Labs reviewed and are significant for: completed at [facility] EKG by my review is significant for: Completed at [facility] Medication adjustments: Instructed to stop eliquis 2-3 days prior to surgery Additional consults or testing: none documented in this encounter Plan of Treatment Upcoming Encounters Date Type Department Care Team (Late st Contact Info) Description 07/08/2024 11:30 AM EDT Office Visit Dermatology [facility] [address] [facility] [place] [address] Jad Alamo MD [address] [place] [address] 09/07/2024 8:30 AM EST Office Visit [facility] [address] [place] [phone] Audra James DO [address] [place] [address] 10/19/2024 9:30 AM EST [facility] [address] [place] [facility] [place] [address] Peg Pruitt PA-C [address] [place] [address] Health Maintenance Due Date Last Done Comments [...] this encounter Medical Devices Implanted Type Area Hypoid Gear Tester Device Identifier Shelf Expiration Date Model / Serial / Lot Mesh Restorelle Y - [id number] Implanted:Qty: 1 on 12/10/2020 by Audra Merritt MD at [place] [facility] [place] [employer] KARLENE 2022 [id number] / / [id number] documented as of this encounter Visit Diagnoses Diagnosis Preop examination- Primary Preoperative examination, unspecified Primary osteoarthritis of right hip Primary localized osteoarthrosis, pelvic region and thigh Hypothyroidism, unspecified type Paroxysmal atrial fibrillation (HCC) Atrial fibrillation Familial hypercholesterolemia Pure hypercholesterolemia documented in this encounter Advance Directives * [...] Advance Directives occurred with: Patient Care Teams Slate Mixer Relationship Specialty Start Date End Date Audra James DO [address] [place] [address] PCP - General Family Medicine 04/03/23 documented as of this encounter
--- OUTSIDE RECORDS SUMMARY | 2024-06-15 14:36 | External Medical Summary | Summary of Care ---
Author Name Unknown Organization [facility] Address 1 [facility] [place] [address] Care Team Providers Care Knot Cutter Name Role Phone Audra James DO Primary Care Provider +1- [phone] Reason for Visit * Reason Onset Date [...] encounter Miscellaneous Notes * Telephone Encounter - Linda Horner MED MARION - 06/14/2024 8:08 AM EDT Marta calling again for note, surgery is scheduled for tomorrow. * Telephone Encounter - Linda Horner MED ASSIST - 06/13/2024 9:48 AM EDT Call cristy Lozano at [facility] to request pre-op clearance be faxed once its signed to [phone]. Surgery is scheduled for 06/15 documented in this encounter Plan of Treatment Upcoming Encounters Date Type Department Care Team (Late st Contact Info) Description 07/08/2024 11:30 AM EDT Office Visit Dermatology [facility] [address] [place] [address] Jad Alamo MD [address] [place] [address] 09/07/2024 8:30 AM EST Office Visit [facility] [address] [place] [phone] Audra James, DO [address] [place] [address] 10/19/2024 9:30 AM EST Office Visit Gynecology/Oncology, [place] [address] [place], [place] [phone] Peg Pruitt PA-C [address] [place], [place] [phone] Health Maintenance Due Date Last Done Comments DXA Scan 1952 DTap/Tdap Vaccines (1 - Tdap) 12/30/1971 Colonoscopy 1997 Fecal Occult Blood Test 1997 Sigmoidoscopy 1997 Zoster Vaccines (1 of 2) 2002 Pneumococcal Vaccine: 65+ Years (1 of 1 - PCV) 2017 COVID-19 Vaccine ( - 2023- season) 2024 Influenza Vaccine (FLU shot) (#1) [...] this encounter Medical Devices Implanted Type Area Speeder Operator Device Identifier Shelf Expiration Date Model / Serial / Lot Mesh Restorelle Y - [id number] Implanted:Qty: 1 on 12/10/2020 by Audra Merritt MD at OR [facility] [place] [employer] KARLENE 2022 [id number] / / [id number] documented as of this encounter Advance Directives [...] Advance Directives occurred with: Patient Care Teams Knot Cutter Relationship Specialty Start Date End Date Audra James DO [address] [place] [address] PCP - General Family Medicine 04/03/23 documented as of this encounter
--- OUTSIDE RECORDS SUMMARY | 2024-06-15 14:36 | External Medical Summary ---
Author Name Unknown Address Unknown Organization [place] [address] Laboratory Report Ordering Provider Test Date Status BALJIT HAWKINS 05/27/2024 07:33:24 Final Observation Date Value Abnormality Reference (Units ) Status [facility] T4 FREE 05/27/2024 07:33:24 1.14 0.90 -1.70 (ng/dL) [place] [address]
--- OUTSIDE RECORDS SUMMARY | 2024-06-15 14:36 | External Medical Summary | Summary of Care ---
Author Name Unknown Organization [facility] Address 1 [facility] [place] [address] Care Team Providers Care Teacher Education Instructor Name Role Phone Audra James DO Primary Care Provider +1- [phone] Reason for Visit * Reason Onset Date [...] as of this encounter (statuses as of 06/13/2024) Medications Medication Sig Dispensed Refills Start Date [...] as of this encounter (statuses as of 06/13/2024) Active Problems Problem Noted Date Diagnosed Date [...] as of this encounter (statuses as of 06/13/2024) Resolved Problems Problem Noted Date Diagnosed Date Resolved Date Melanoma in situ of neck 04/04/2016 Overview: Melanoma in situ, right anterior base of neck documented as of this encounter (statuses as of 06/13/2024) Social History Tobacco Use Types Packs/Day Years [...] 9:48 AM EDT Call cristy Lozano at [facility] to request pre-op clearance be faxed once its signed to [phone]. Surgery is scheduled for 06/15 documented in this encounter Plan of Treatment Upcoming Encounters Date Type Department Care Team (Late st Contact Info) Description 07/08/2024 11:30 AM EDT [facility] [address] [place] [address] Jad Alamo MD [address] [place] [address] 09/07/2024 8:30 AM EST Office Visit Family Medicine, [facility] [address] [place] [phone] Audra James, [address] [place] [address] 10/19/2024 9:30 AM EST Office Visit Gynecology/Oncology, [place] [address] [place], [place] [phone] Peg Pruitt PA-C [address] [place] [address] Health Maintenance Due Date Last Done Comments DXA Scan 1952 DTap/Tdap Vaccines (1 - Tdap) 12/30/1971 Colonoscopy 1997 Fecal Occult Blood Test 1997 Sigmoidoscopy 1997 Zoster Vaccines (1 of 2) 2002 Pneumococcal Vaccine: 65+ Years (1 of 1 - PCV) 2017 COVID-19 Vaccine ( - season) 2024 Influenza Vaccine (FLU shot) [...] this encounter Medical Devices Implanted Type Area Carton Packaging Machine Operator Device Identifier Shelf Expiration Date Model / Serial / Lot Mesh Carloslle Y - [id number] Implanted:Qty: 1 on 12/10/2020 by Audra Merritt [place] [facility] [employer] 2022 [id number] / / [id number] documented as of this encounter Advance Directives [...] Advance Directives occurred with: Patient Care Teams Teacher Education Instructor Relationship Specialty Start Date End Date Audra Jamse DO [address] [place] [address] PCP - General Family Medicine 04/03/23 documented as of this encounter
[2024-06-15] MEDS ORDERED: MAGNESIUM HYDROXIDE SUSP 30 ML UDC PO PRN (15:15)
[2024-06-15] MEDS ORDERED: bisacodyL 10 MG SUPP PR PRN (15:15)
[2024-06-15] MEDS ORDERED: diphenhydrAMINE 50 MG/ML VIAL IV PRN (15:15)
[2024-06-15] MEDS ORDERED: NALOXONE HCL 0.4 MG/1 ML VIAL/CARP IV PRN (15:15)
[2024-06-15] MEDS ORDERED: BACLOFEN 10 MG TAB PO PRN (15:15)
[2024-06-15] MEDS ORDERED: METOCLOPRAMIDE HCL INJ 5 MG/ML 2 ML VIAL IV PRN (15:15)
[2024-06-15] MEDS ORDERED: ALUMINUM/MAGNESIUM SUSP 30 ML UDC PO PRN (15:15)
[2024-06-15] MEDS: FERROUS GLUCONATE 324 MG TAB PO SCH (17:01)
[2024-06-15] MEDS: ASCORBIC ACID 500 MG TAB PO SCH (17:01)
[2024-06-15] MEDS: MECLIZINE 12.5 MG TAB PO PRN (18:04)
[2024-06-15 19:19] VITALS: RESP 16
[2024-06-15] MEDS: DOCUSATE SODIUM 100 MG CAP PO SCH (21:23)
[2024-06-15] MEDS: HYDROmorphone INJ 0.5 MG/0.5 ML SYR IV PRN (21:23)
[2024-06-15] MEDS: SENNA 8.6 MG TAB PO SCH (21:23)
[2024-06-16] MEDS: HYDROCODONE/ACETAMOPHEN 5/325MG TAB PO PRN (00:01)
[2024-06-16 03:27] VITALS: O2SAT 95
[2024-06-16] MEDS: LEVOTHYROXINE SODIUM 100 MCG TABLET PO SCH (05:54)
[2024-06-16 06:16] LABS: Basophils # (auto) 0.02 K/uL (0.00-0.20); Basophils % (auto) 0.2 %; Hematocrit (blood only) 34.4 % (37.0-47.0); Hemoglobin 11.2 g/dl (12.0-16.0); Immature Granulocytes # (auto) 0.03 K/uL (0.01-0.20); Immature Granulocytes % (auto) 0.3 %; Lymphocytes # (auto) 0.96 K/uL (1.20-3.40); Lymphocytes % (auto) 9.1 %; Mean Corpuscular Hemoglobin 29.1 pg (25.0-34.0); Mean Corpuscular Hgb Conc 32.6 g/dL (32.0-36.0); Mean Corpuscular Volume 89.4 fL (80.0-100.0); Mean Platelet Volume 11.1 fL (9.4-12.4); Monocytes % (auto) 11.4 %; Platelet Count 169 K/uL (130-400); RDW Coefficient of Variation 12.9 % (11.5-14.5); RDW Standard Deviation 42.1 fL (36.4-46.3); Red Blood Count 3.85 M/uL (4.20-5.40); White Blood Count 10.51 K/ul (4.8-10.8)
--- NOTE | 2024-06-16 06:33 | Orthopedic Progress Note ---
Date of Service June 16, 2024 Assessment & Plan Admission and Anticipated Discharge Date Admission Date: June 15, 2024 Orthopedic Progress Note Postop day #1 status post right total replacement. Patient is very apprehensive about going home today. Still feels like she has difficulty navigating through the room and getting to the bathroom. She was encouraged that this is pretty typical for the first day. At this point time I will resend any discharge order until she is clearly passed PT OT. This was described to her in detail. Asked her to call her and not having Georgian because it is foggy this morning. Vital signs are stable she is afebrile. Neurovascular check femoral sciatic nerve is normal. Wound dressing clean dry and intact. Calves nontender. A.m. labs are pending. Assessment doing reasonably well status post hip replacement needs to be more mobile and get a little bit more psychologically confident about her movements. Will await PT OT assessments. Will finalize discharge plans after that.
[2024-06-16 06:41] LABS: Calcium 8.7 mg/dl (8.6-10.3); Creatinine Clr Calc Pharmacy 72.7 ml/min; Est GFR (African American) 106.3 ml/min; Est GFR (Non-African American) 91.7 ml/min; Potassium 3.9 mmol/L (3.5-5.1)
[2024-06-16 07:31] VITALS: BP 132/65; PULSE 72; TEMP 98.8
[2024-06-16] MEDS: dexAMETHasone 10 MG in SYRINGE 0 ML IV SCH (07:50)
[2024-06-16] MEDS: APIXABAN 5 MG TABLET PO SCH (07:51)
[2024-06-16] MEDS: MULTIVITAMIN TAB PO SCH (07:51)
--- NOTE | 2024-06-16 10:04 | Orthopedic Progress Note ---
Date of Service June 16, 2024 Assessment & Plan (1) Status post right hip replacement: Plan: The patient was educated regarding today's findings. Her postsurgical dressing was changed today by me. Pressure dressing was applied. She will leave this in place through the weekend. It can be changed on Thursday by home health if needed for soiling. It can also remain in place until she is seen in the office. I will see her on for a 1 week check to assess her progress. Ice the hip frequently. Use the walker for ambulation. Her normal dose of Eliquis will be restarted this morning. Prescription for Liberty 5 mg was sent to her pharmacy for pain control. Call the office with any other concerns. Written discharge instructions were provided. Admission and Anticipated Discharge Date Admission Date: June 15, 2024 Subjective This 73-year-old female is seen today in her room. She is 1 day status post right total hip arthroplasty. The patient states she had some pain overnight but is doing fairly well at this time. She has finished her breakfast. She states she does not have much of an appetite. No significant nausea. She denies any vomiting. No chest pain or shortness of breath. She ambulated from her bed to her bedside chair. She is somewhat anxious about starting PT/OT today. Review of Systems Review of Systems: Unchanged from yesterday. Physical Exam Physical Exam: General: Well-developed, well-nourished, elderly female, in no acute distress. Sitting in a bedside chair. Alert and oriented. Skin: Warm dry with good turgor. Postsurgical dressing is in place on the right hip. Upon removal, she has scant dried blood on the inner dressing. Her surgical incision is closed. No active drainage. No significant ecchymosis or edema yet. [place] are in place. Musculoskeletal: The patient is able to rise from a chair fairly easily. She was able to bear full weight on the right leg and stated it felt better than she expected. She has intact motor function to the hip, knee, and ankle. She is able to extend the knee and perform a gentle straight leg raise. Neurologic: Gross sensation is intact across the right leg by soft touch. Peripheral pulses are 2+. Results & Data Vital Signs (Past 12 Hours) Vital Signs Temp Pulse Resp BP Pulse Ox O2 Del Method 06/16/24 07:30 37.1 C 72 16 132/65 95 Room Air 09/19/24 03:27 36.8 C 69 16 127/68 95 Room Air 06/15/24 23:46 36.7 C 63 16 138/65 96 Room Air Laboratory Results CBC obtained today shows a white count of 10.5. H&H of 11.2 and 34.4. Platelets are normal at 169,000. PRP obtained today shows normal electrolytes. Normal BUN and creatinine. Glucose 113.
[2024-06-16] MEDS: ATENOLOL 50 MG TABLET PO SCH (11:14)
--- NOTE | 2024-06-16 12:18 | Orthopedic Progress Note ---
Date of Service June 16, 2024 Assessment & Plan Admission and Anticipated Discharge Date Admission Date: June 15, 2024 Orthopedic Progress Note Patient is doing much better did well with PT. Dressing change everything looks good. Sealed her dressing with Tegaderm just off of the table roll up. Will have her discharge today after receiving a dose of oral medication and IV Zofran. Orders placed. For discharge and medications. Patient and are in agreement.
[2024-06-16] MEDS: ONDANSETRON INJ 2 MG/ML 2 ML VIAL IV STA (12:30)
== END 2024-06-16 13:03 | disposition home health service (06) | DRG 470 ==
LOC: ASU 08:34 → 3E 13:33
DX: Z79.01 Long term (current) use of anticoagulants; Z88.5 Allergy status to narcotic agent; I10 Essential (primary) hypertension; Z85.43 Personal history of malignant neoplasm of ovary; Z91.041 Radiographic dye allergy status; Z91.040 Latex allergy status; Z79.890 Hormone replacement therapy; E03.9 Hypothyroidism, unspecified; M16.11 Unilateral primary osteoarthritis, right hip